=== PATIENT | female | born 1950 | race Caucasian/White ===

== ENCOUNTER → 2017-11-10 | Outpatient (CLI) | payer MEDICARE, OTHER ==
[~2017-11-10] MED LIST: GADOBENATE DIMEGLUMINE 1 ML IV ONE
[2017-11-10 09:15] LABS: BLOOD UREA NITROGEN 18 mg/dL (7-26); BUN/CREATININE RATIO 24 (6-25); CREATININE, SERUM 0.75 mg/dL (0.57-1.11); EST GLOMERULAR FILTRATION RATE > 60 ML/MIN (60-)
--- NOTE | 2017-11-10 12:01 | Diagnostic Imaging Report ---
Examination: MRI BRAIN WITHOUT AND WITH CONTRAST History: Fall. Head injury. History of cancer. Comparison studies: None Technique: Pre-contrast: Sagittal T2; axial T1, GRE or SWI, DWI, T2 FLAIR Post-contrast: axial, sagittal and coronal T1. Intravenous contrast: 16 mL MultiHance Findings: Scalp: No abnormal signal. No masses. Bone marrow: Normal in signal intensity. Brain volume: Adequate for age. No volume loss. Ventricles: Normal in size and configuration. No hydrocephalus. Parenchyma: There are patchy and confluent areas of T2/FLAIR hyperintensity in the periventricular and subcortical white matter, nonspecific. No masses, hemorrhage, or acute vascular insults. Extra-axial spaces: No lesion, fluid collection or hematoma. Enhancement: No abnormal enhancement. Suprasellar and sellar region: No abnormalities. Craniocervical junction: No abnormalities. The foramen magnum is patent. No Chiari malformations. Vessels: Normal flow-voids in the arteries and sinuses. Additional findings:None. IMPRESSION: 1. Mild chronic microvascular ischemic change. 2. No intracranial metastasis. Signed by: Dr. Yoly Negrete M.D. on 11/10/2017 11:57 AM
== END ==
LOC: MRI 08:12
PROVIDERS: ATTEND Internal Medicine
DX: R55 Syncope and collapse (principal); Z85.9 Personal history of malignant neoplasm, unspecified
CPT/HCPCS: 36415; 70553; 82565; 84520

== ENCOUNTER → 2019-06-14 | Outpatient (CLI) | payer MEDICARE, OTHER ==
[2019-06-14 11:26] LABS: BLOOD UREA NITROGEN 17 mg/dL (7-26); BUN/CREATININE RATIO 24 (6-25); EST GLOMERULAR FILTRATION RATE > 60 ML/MIN (60-)
--- NOTE | 2019-06-14 14:38 | Diagnostic Imaging Report ---
Exam: Brain MRI without with IV contrast History: Altered mental status, memory loss, breast cancer Comparison studies: Brain MRI 11/10/2017 Technique: Precontrast sagittal 3-D T1 with axial and coronal reformats, axial DWI, axial T2 FLAIR, axial T2*GRE, axial T2 and postcontrast axial and coronal T1 FS. Intravenous contrast: 20 cc MultiHance Findings: Scalp: No abnormal signal. No masses. Bone marrow: Normal in signal intensity. Brain sulci: Mildly prominent. Ventricles: Compensatory dilatation. No hydrocephalus. Extra axial spaces: No mass, no fluid collection. Parenchyma: No mass, hemorrhage or acute ischemia. Scattered and confluent T2 FLAIR hyperintense foci in the supratentorial white matter and mild T2 FLAIR hyperintense foci in the pallavi are nonspecific but most compatible with chronic microvascular ischemic changes which are unchanged the prior brain MRI. No enhancing abnormalities. There is mild general parenchymal volume loss with slightly greater volume loss along the anterior temporal lobes and and left greater than right hippocampus. Suprasellar region: No abnormalities. Craniocervical junction: Patent foramen magnum. No Chiari one malformation. Vessels: Normal flow-voids in the arteries and sinuses. Incidental findings: Nonspecific reactive T2 hyperintense changes or effusion in the right mastoids. IMPRESSION: 1. New nonspecific right mastoid inflammation or effusion. 2. No other changes from the prior MRI of 11/10/2017. 3. No evidence of metastatic disease. 4. Moderate chronic microvascular ischemic changes. 5. Mild generalized parenchymal volume loss with a a bitemporal predominance. Signed by: Dr. Roman Lauren M.D. on 06/14/2019 2:34 PM
== END ==
LOC: MRI 10:37
PROVIDERS: ATTEND Internal Medicine Hematology & Oncology
DX: C50.511 Malignant neoplasm of lower-outer quadrant of right female breast (principal); R41.82 Altered mental status, unspecified
CPT/HCPCS: 36415; 70553; 82565; 84520; A9577

== ENCOUNTER 2022-09-17 11:25 | Emergency (ER) | payer MEDICARE, OTHER ==
[~2022-09-17] VITALS: Ht 152.4 cm; Wt 83.9 kg
[2022-09-17 13:09] LABS: BASOPHILS # (AUTO) 0.1 (0.0-0.1); BASOPHILS % 2.1 % (0.0-1.0); EOSINOPHILS # (AUTO) 0.2 (0.0-0.4); EOSINOPHILS % 3.7 % (0.0-6.0); HEMATOCRIT 40.1 % (34.2-44.1); HEMOGLOBIN 13.7 g/dL (12.0-16.0); LYMPHOCYTES # (AUTO) 1.4 (1.0-3.2); LYMPHOCYTES % 25.1 % (18.0-39.1); MEAN CORPUSCULAR HGB CONC 34.2 g/dL (31-35); MEAN CORPUSCULAR VOLUME 108.4 fL (81-99); MONOCYTES # (AUTO) 0.6 (0.2-0.8); MONOCYTES % 10.8 % (4.4-11.3); NEUTROPHILS # (AUTO) 3.3 (2.1-6.9); NEUTROPHILS % 58.1 % (38.7-80.0); PLATELET COUNT 353 x10e3/uL (140-360); RED CELL DISTRIBUTION WIDTH 11.9 % (11.7-14.4)
[2022-09-17 13:14] LABS: CLARITY,URINE SL CLOUDY (CLEAR); COLOR,URINE YELLOW (YELLOW); LEUKOCYTE ESTERASE ,URINE NEGATIVE (NEGATIVE); NITRITE,URINE NEGATIVE (NEGATIVE)
[2022-09-17 13:15] LABS: KETONES,URINE >=160 (NEGATIVE); PROTEIN,URINE DIPSTICK 1+ (NEGATIVE); URINE UROBILINOGEN 1 mg/dL (0.2 - 1)
[2022-09-17 13:17] LABS: BACTERIA,URINE FEW /HPF; EPITHELIAL CELLS,URINE MODERATE /LPF; RBC,URINE 0-5 /HPF (0-5)
[2022-09-17 13:30] LABS: ALBUMIN/GLOBULIN RATIO 1.4 (0.8-2.0); ANION GAP 21.4 mmol/L (8-16); CALCIUM 9.2 mg/dL (8.4-10.2); CREATININE, SERUM 0.74 mg/dL (0.57-1.11)
[2022-09-17 13:33] LABS: POTASSIUM 2.4 mmol/L (3.5-5.1)
[2022-09-17 13:36] LABS: CREATINE KINASE MB 0.9 ng/mL (0-5.0)
[2022-09-17] MEDS ORDERED: POTASSIUM CHLORIDE 20 MEQ TAB CR PO ONE (14:08)
[2022-09-17] MEDS ORDERED: K-DUR10 MEQ PO (14:41)
[2022-09-17] MEDS ORDERED: POTASSIUM CHLO20 ME1 PO (15:21)
[2022-09-17 15:25] VITALS: BP 112/95
== END 2022-09-17 15:12 | disposition home or self-care (01) ==
LOC: ER 11:36
DX: M25.552 Pain in left hip (principal); E87.6 Hypokalemia; F03.90 Unspecified dementia, unspecified severity, without behavioral disturbance, psychotic disturbance, mood disturbance, and anxiety; Z20.822 Contact with and (suspected) exposure to COVID-19; R94.31 Abnormal electrocardiogram [ECG] [EKG]
CPT/HCPCS: 36415; 71045; 73521; 80053; 81001; 82550; 82553; 83735; 84484; 85025; 93005; 99284; U0002

== ENCOUNTER 2022-09-20 19:21 | Emergency (ER) | payer MEDICARE, OTHER ==
[~2022-09-20] VITALS: Ht 152.4 cm; Wt 83.9 kg
[~2022-09-20 19:21] MED LIST changes: -GADOBENATE DIMEGLUMINE 1 ML IV ONE; +K-DUR10 MEQ PO; +POTASSIUM CHLO20 ME1 PO
== END 2022-09-20 22:38 | disposition home or self-care (01) ==
LOC: ER 19:36
DX: R10.30 Lower abdominal pain, unspecified (principal); I10 Essential (primary) hypertension; F03.90 Unspecified dementia, unspecified severity, without behavioral disturbance, psychotic disturbance, mood disturbance, and anxiety; E78.5 Hyperlipidemia, unspecified; Z85.3 Personal history of malignant neoplasm of breast
CPT/HCPCS: 74019; 99283